=== PATIENT | female | born 2000 | race Asian ===

== ENCOUNTER 2023-01-18 15:26 | Inpatient (IN) ==
--- NOTE | 2023-01-18 16:04 | Emergency Department Note ---
Impression & Plan Suicide attempt ADMIT / 302 ED Provider Note HPI: The patient is a 22-year-old female who presents the emergency department after an intentional overdose on Strattera. Patient states that at approximately 3 PM she took 28 separate 40 mg Strattera tablets as a suicide attempt. Patient otherwise is a limited historian, she is alert on arrival, she responds to my questions appropriately, she is hemodynamically stable and saturating well on room air on arrival. Per police report, patient mentioned that she was feeling very anxious about recent exams as this is at the [facility] [employer]. ROS: - Per HPI *Outpatient medications and allergy history reviewed. *Pertinent external medical records reviewed. PE: General: Alert HEENT: Normocephalic, trachea midline Eyes: Extraocular eye movement is intact, no scleral erythema Pulmonary: Clear to auscultation bilaterally, no wheezing Cardio: Regular rate and rhythm GI: Abdomen is soft to palpation : No suprapubic tenderness MSK: No evidence of trauma or malformation of the extremities, no edema Skin: No evidence of rash Neuro: Alert, no focal deficits Psychiatric: Cooperative phototypesetting equipment monitor: (As interpreted by myself): - An order was placed for continuous cardiac monitoring - Patient was noted to be in sinus rhythm with a rate of 90 EKG: (As interpreted by myself): Rate: 73 Rhythm: Normal sinus rhythm Intervals: Within normal limits ST changes: No ST elevation Time: 1530 Medical Decision Making: Patient presented to the emergency department after intentional drug overdose as a suicide attempt. Patient states that she took 28 separate 40 mg tablets of Strattera. Patient states that she did this as a suicide attempt. She otherwise does not want to provide other details in regards to her presentation. Per police report patient did mention that she was feeling very stressed and anxious about her recent exam she took during . She is an international student and reportedly will be returning home to [place] in the coming weeks. IV was established and lab work obtained, patient was maintained on monitoring coordinator, EKG was obtained. EKG does not show any evidence of arrhythmia or interval prolongation, patient is alert and oriented on arrival. Patient's pr esentation was discussed with Poison Control Center, [place], I did discuss case with the poison corporate controller, at this time supportive care measures recommended, benzodiazepines as needed for any agitation or hypertension, otherwise avoidance of antipsychotics over concern for lowering seizure threshold. Patient will be able to be medically cleared after 8 hours of observation if she does well. Given the patient admitted to me that this was a suicide attempt, 302 was filed. Patient's lab work shows negative alcohol level, negative Tylenol and salicylate levels. Otherwise no critical findings noted. UDS is arellano negative. Patient was signed out to my colleague at change of shift, Dr. Dominguez, pending ongoing bed search under 302. Consultants: Case management, poison control Diagnosis: 1. Intentional drug overdose 2. Suicide attempt Disposition: Hand off, 302 Newton Kahn, DO Emergency Medicine Past Med/Surg History Social History Smoking Status: Never smoker Feels Safe at Home: Yes Results & Data (ED) Vital Signs Vital Signs - 24 hr 01/18/23 15:30 01/18/23 15:50 01/18/23 15:40 Temperature 34.7 C L Temperature Source Axillary Pulse Rate 70 74 Pulse Rate [Apical] 75 Pulse Rate from SpO2 Sensor 74 Pulse Rhythm [Apical] Regular Pulse Strength [Apical] Normal Respiratory Rate 16 14 22 Respiratory Effort / Characteristics Non-Labored Non-Labored Spontaneous Respiratory Depth Normal Normal Respiratory Pattern Regular Regular Blood Pressure 142/95 H 124/93 Blood Pressure [Right Arm] 122/87 Blood Pressure Mean 110 103 Blood Pressure Mean [Right Arm] 98 Blood Pressure Position [Right Arm] Lying Pulse Oximetry 100 100 100 Oxygen Delivery Method Room Air Room Air Sepsis Recent Fever Within 48 Hours No Sepsis New/Unexplained Change in Mental Status N/A Sepsis Action Taken by Nursing No Action Required 01/18/23 15:50 01/18/23 15:35 01/18/23 16:00 Temperature Temperature Source Pulse Rate 73 69 73 Pulse Rate [Apical] Pulse Rate from SpO2 Sensor 73 73 Pulse Rhythm [Apical] Pulse Strength [Apical] Respiratory Rate 21 22 Respiratory Effort / Characteristics Respiratory Depth Respiratory Pattern Blood Pressure 122/87 124/92 Blood Pressure [Right Arm] Blood Pressure Mean 98 102 Blood Pressure Mean [Right Arm] Blood Pressure Position [Right Arm] Pulse Oximetry 100 99 Oxygen Delivery Method Sepsis Recent Fever Within 48 Hours Sepsis New/Unexplained Change in Mental Status Sepsis Action Taken by Nursing 01/18/23 16:10 01/18/23 16:20 01/18/23 16:30 Temperature Temperature Source Pulse Rate 69 82 74 Pulse Rate [Apical] Pulse Rate from SpO2 Sensor 70 79 75 Pulse Rhythm [Apical] Pulse Strength [Apical] Respiratory Rate 23 21 26 H Respiratory Effort / Characteristics Respiratory Depth Respiratory Pattern Blood Pressure 126/89 126/88 126/92 Blood Pressure [Right Arm] Blood Pressure Mean 101 100 103 Blood Pressure Mean [Right Arm] Blood Pressure Position [Right Arm] Pulse Oximetry 99 99 99 Oxygen Delivery Method Sepsis Recent Fever Within 48 Hours Sepsis New/Unexplained Change in Mental Status Sepsis Action Taken by Nursing 01/18/23 16:40 01/18/23 16:50 01/18/23 17:00 Temperature Temperature Source Pulse Rate 72 73 74 Pulse Rate [Apical] Pulse Rate from SpO2 Sensor 72 72 72 Pulse Rhythm [Apical] Pulse Strength [Apical] Respiratory Rate 23 24 24 Respiratory Effort / Characteristics Respiratory Depth Respiratory Pattern Blood Pressure 126/90 124/90 123/88 Blood Pressure [Right Arm] Blood Pressure Mean 102 101 99 Blood Pressure Mean [Right Arm] Blood Pressure Position [Right Arm] Pulse Oximetry 99 100 99 Oxygen Delivery Method Sepsis Recent Fever Within 48 Hours Sepsis New/Unexplained Change in Mental Status Sepsis Action Taken by Nursing 01/18/23 17:10 01/18/23 17:20 01/18/23 17:30 Temperature Temperature Source Pulse Rate 73 75 84 Pulse Rate [Apical] Pulse Rate from SpO2 Sensor 73 74 80 Pulse Rhythm [Apical] Pulse Strength [Apical] Respiratory Rate 27 H 24 23 Respiratory Effort / Characteristics Respiratory Depth Respiratory Pattern Blood Pressure 123/87 122/83 124/87 Blood Pressure [Right Arm] Blood Pressure Mean 99 96 99 Blood Pressure Mean [Right Arm] Blood Pressure Position [Right Arm] Pulse Oximetry 99 99 99 Oxygen Delivery Method Sepsis Recent Fever Within 48 Hours Sepsis New/Unexplained Change in Mental Status Sepsis Action Taken by Nursing 01/18/23 17:40 01/18/23 17:50 01/18/23 18:00 Temperature Temperature Source Pulse Rate 74 79 83 Pulse Rate [Apical] Pulse Rate from SpO2 Sensor 77 79 82 Pulse Rhythm [Apical] Pulse Strength [Apical] Respiratory Rate 24 26 H 21 Respiratory Effort / Characteristics Respiratory Depth Respiratory Pattern Blood Pressure 130/92 126/87 125/86 Blood Pressure [Right Arm] Blood Pressure Mean 104 100 99 Blood Pressure Mean [Right Arm] Blood Pressure Position [Right Arm] Pulse Oximetry 98 98 98 Oxygen Delivery Method Sepsis Recent Fever Within 48 Hours Sepsis New/Unexplained Change in Mental Status Sepsis Action Taken by Nursing 01/18/23 18:10 01/18/23 18:20 01/18/23 18:30 Temperature Temperature Source Pulse Rate 82 81 80 Pulse Rate [Apical] Pulse Rate from SpO2 Sensor 84 81 80 Pulse Rhythm [Apical] Pulse Strength [Apical] Respiratory Rate 24 22 15 Respiratory Effort / Characteristics Respiratory Depth Respiratory Pattern Blood Pressure 124/84 125/83 126/84 Blood Pressure [Right Arm] Blood Pressure Mean 97 97 98 Blood Pressure Mean [Right Arm] Blood Pressure Position [Right Arm] Pulse Oximetry 97 97 97 Oxygen Delivery Method Sepsis Recent Fever Within 48 Hours Sepsis New/Unexplained Change in Mental Status Sepsis Action Taken by Nursing 01/18/23 18:40 01/18/23 18:50 01/18/23 19:00 Temperature Temperature Source Pulse Rate 86 85 83 Pulse Rate [Apical] Pulse Rate from SpO2 Sensor 89 85 84 Pulse Rhythm [Apical] Pulse Strength [Apical] Respiratory Rate 24 24 22 Respiratory Effort / Characteristics Respiratory Depth Respiratory Pattern Blood Pressure 129/80 129/79 125/77 Blood Pressure [Right Arm] Blood Pressure Mean 96 95 93 Blood Pressure Mean [Right Arm] Blood Pressure Position [Right Arm] Pulse Oximetry 97 97 96 Oxygen Delivery Method Sepsis Recent Fever Within 48 Hours Sepsis New/Unexplained Change in Mental Status Sepsis Action Taken by Nursing Laboratory Data 01/18/23 15:46 01/18/23 15:46 Lab Results 01/18/23 01/18/23 01/18/23 Range/Units 15:46 15:46 15:46 WBC 11.63 H (4.8-10.8) K/ul RBC 4.09 L (4.20-5.40) M/uL Hgb 12.2 (12.0-16.0) g/dl Hct 36.7 L (37.0-47.0) % MCV 89.7 (80.0-100.0) fL MCH 29.8 (25.0-34.0) pg MCHC 33.2 (32.0-36.0) g/dL RDW Std Deviation 39.0 (36.4-46.3) fL RDW Coeff of David 11.9 (11.5-14.5) % Plt Count 263 (130-400) K/uL MPV 10.2 (9.4-12.4) fL Immature Gran % (Auto) 0.4 % Neut % (Auto) 55.2 % Lymph % (Auto) 37.7 % Emmons % (Auto) 5.3 % Eos % (Auto) 0.7 % Baso % (Auto) 0.7 % Neut # (Auto) 6.42 (1.40-6.50) K/uL Lymph # (Auto) 4.38 H (1.2-3.4) K/uL Emmons # (Auto) 0.62 H (0.11-0.59) K/uL Eos # (Auto) 0.08 (0-0.50) K/uL Baso # (Auto) 0.08 (0-0.2) K/uL Immature Gran # (Auto) 0.05 (0.01-0.20) K/uL Sodium 137 (136-145) mmol/L Potassium 3.4 L (3.5-5.1) mmol/L Chloride 106 (98-107) mmol/L Carbon Dioxide 25 (21-32) mmol/L Anion Gap 6 (3-11) BUN 16 (6-23) mg/dl Creatinine 0.74 (0.6-1.2) mg/dl Est Cr Clr Drug Dosing Not Reportable Est GFR ( Amer) 133.3 ml/min Est GFR (Non-Af Amer) 115.0 ml/min BUN/Creatinine Ratio 21.6 H (10-20) Glucose 89 (70-99(Fasting)) mg/dl Calcium 8.5 L (8.6-10.3) mg/dl Magnesium 1.7 (1.7-2.4) mg/dl Total Bilirubin 0.4 (0.2-1.0) mg/dl AST 12 L (13-39) U/L ALT 8 (7-52) U/L Alkaline Phosphatase 66 (34-104) U/L Total Protein 6.8 (6.0-8.3) gm/dl Albumin 4.2 (3.4-5.0) gm/dl Globulin 2.6 (2.5-4.0) gm/dl Albumin/Globulin Ratio 1.6 (0.9-2) TSH 2.161 (0.300-4.500) uIu/ml Urine Color Urine Appearance (Clear) Urine pH (4.5-7.5) Ur Specific [place] (1.000-1.030) Urine Protein (Negative) Urine Glucose (UA) (Negative) Urine Ketones (Negative) Urine Blood (Negative) Urine Nitrite (Negative) Urine Bilirubin (Negative) Urine Urobilinogen (Negative) Ur Leukocyte Esterase (Negative) Urine WBC (Auto) (0-5) /hpf Urine RBC (Auto) (0-4) /hpf U Hyaline Cast (Auto) (0-5) /lpf U Epithel Cells (Auto) (0-5) /lpf Urine Bacteria (Auto) (Negative) POC Ur Test (NEG) Salicylates (3.0-30) mg/dl Urine Opiates Screen (Neg) Ur Methadone, Qual (Neg) Acetaminophen (10-30) ug/ml Urine Barbiturates (Neg) Ur Phencyclidine (PCP) (Neg) U Amphetamin/Meth Scrn (Neg) MDMA (Ecstasy) Screen (Neg) U Benzodiazepines Scrn (Neg) Ur Cocaine Metabolite (Neg) U Marijuana (THC) Screen (Neg) Ethyl Alcohol mg/dL (<10.0) mg/dl SARS-CoV-2, RNA, NAAT (NEGATIVE) 01/18/23 01/18/23 01/18/23 Range/Units 15:46 15:46 15:47 WBC (4.8-10.8) K/ul RBC (4.20-5.40) M/uL Hgb (12.0-16.0) g/dl Hct (37.0-47.0) % MCV (80.0-100.0) fL MCH (25.0-34.0) pg MCHC (32.0-36.0) g/dL RDW Std Deviation (36.4-46.3) fL RDW Coeff of David (11.5-14.5) % Plt Count (130-400) K/uL MPV (9.4-12.4) fL Immature Gran % (Auto) % Neut % (Auto) % Lymph % (Auto) % Emmons % (Auto) % Eos % (Auto) % Baso % (Auto) % Neut # (Auto) (1.40-6.50) K/uL Lymph # (Auto) (1.2-3.4) K/uL Emmons # (Auto) (0.11-0.59) K/uL Eos # (Auto) (0-0.50) K/uL Baso # (Auto) (0-0.2) K/uL Immature Gran # (Auto) (0.01-0.20) K/uL Sodium (136-145) mmol/L Potassium (3.5-5.1) mmol/L Chloride (98-107) mmol/L Carbon Dioxide (21-32) mmol/L Anion Gap (3-11) BUN (6-23) mg/dl Creatinine (0.6-1.2) mg/dl Est Cr Clr Drug Dosing Est GFR ( Amer) ml/min Est GFR (Non-Af Amer) ml/min BUN/Creatinine Ratio (10-20) Glucose (70-99(Fasting)) mg/dl Calcium (8.6-10.3) mg/dl Magnesium (1.7-2.4) mg/dl Total Bilirubin (0.2-1.0) mg/dl AST (13-39) U/L ALT (7-52) U/L Alkaline Phosphatase (34-104) U/L Total Protein (6.0-8.3) gm/dl Albumin (3.4-5.0) gm/dl Globulin (2.5-4.0) gm/dl Albumin/Globulin Ratio (0.9-2) TSH (0.300-4.500) uIu/ml Urine Color Urine Appearance (Clear) Urine pH (4.5-7.5) Ur Specific [place] (1.000-1.030) Urine Protein (Negative) Urine Glucose (UA) (Negative) Urine Ketones (Negative) Urine Blood (Negative) Urine Nitrite (Negative) Urine Bilirubin (Negative) Urine Urobilinogen (Negative) Ur Leukocyte Esterase (Negative) Urine WBC (Auto) (0-5) /hpf Urine RBC (Auto) (0-4) /hpf U Hyaline Cast (Auto) (0-5) /lpf U Epithel Cells (Auto) (0-5) /lpf Urine Bacteria (Auto) (Negative) POC Ur Test (NEG) Salicylates < 3.0 L (3.0-30) mg/dl Urine Opiates Screen (Neg) Ur Methadone, Qual (Neg) Acetaminophen < 3 L (10-30) ug/ml Urine Barbiturates (Neg) Ur Phencyclidine (PCP) (Neg) U Amphetamin/Meth Scrn (Neg) MDMA (Ecstasy) Screen (Neg) U Benzodiazepines Scrn (Neg) Ur Cocaine Metabolite (Neg) U Marijuana (THC) Screen (Neg) Ethyl Alcohol mg/dL < 10.0 (<10.0) mg/dl SARS-CoV-2, RNA, NAAT NEGATIVE (NEGATIVE) 01/18/23 01/18/23 01/18/23 Range/Units 16:23 17:38 17:38 WBC (4.8-10.8) K/ul RBC (4.20-5.40) M/uL Hgb (12.0-16.0) g/dl Hct (37.0-47.0) % MCV (80.0-100.0) fL MCH (25.0-34.0) pg MCHC (32.0-36.0) g/dL RDW Std Deviation (36.4-46.3) fL RDW Coeff of David (11.5-14.5) % Plt Count (130-400) K/uL MPV (9.4-12.4) fL Immature Gran % (Auto) % Neut % (Auto) % Lymph % (Auto) % Emmons % (Auto) % Eos % (Auto) % Baso % (Auto) % Neut # (Auto) (1.40-6.50) K/uL Lymph # (Auto) (1.2-3.4) K/uL Emmons # (Auto) (0.11-0.59) K/uL Eos # (Auto) (0-0.50) K/uL Baso # (Auto) (0-0.2) K/uL Immature Gran # (Auto) (0.01-0.20) K/uL Sodium (136-145) mmol/L Potassium (3.5-5.1) mmol/L Chloride (98-107) mmol/L Carbon Dioxide (21-32) mmol/L Anion Gap (3-11) BUN (6-23) mg/dl Creatinine (0.6-1.2) mg/dl Est Cr Clr Drug Dosing Est GFR ( Amer) ml/min Est GFR (Non-Af Amer) ml/min BUN/Creatinine Ratio (10-20) Glucose (70-99(Fasting)) mg/dl Calcium (8.6-10.3) mg/dl Magnesium Cancelled (1.7-2.4) mg/dl Total Bilirubin (0.2-1.0) mg/dl AST (13-39) U/L ALT (7-52) U/L Alkaline Phosphatase (34-104) U/L Total Protein (6.0-8.3) gm/dl Albumin (3.4-5.0) gm/dl Globulin (2.5-4.0) gm/dl Albumin/Globulin Ratio (0.9-2) TSH (0.300-4.500) uIu/ml Urine Color Yellow Urine Appearance Clear (Clear) Urine pH 7.5 (4.5-7.5) Ur Specific [place] 1.012 (1.000-1.030) Urine Protein Negative (Negative) Urine Glucose (UA) Negative (Negative) Urine Ketones Negative (Negative) Urine Blood Negative (Negative) Urine Nitrite Negative (Negative) Urine Bilirubin Negative (Negative) Urine Urobilinogen Negative (Negative) Ur Leukocyte Esterase 3+ H (Negative) Urine WBC (Auto) >30 H (0-5) /hpf Urine RBC (Auto) 0-4 (0-4) /hpf U Hyaline Cast (Auto) 1-5 (0-5) /lpf U Epithel Cells (Auto) 5-10 H (0-5) /lpf Urine Bacteria (Auto) Negative (Negative) POC Ur Test NEG (NEG) Salicylates (3.0-30) mg/dl Urine Opiates Screen (Neg) Ur Methadone, Qual (Neg) Acetaminophen (10-30) ug/ml Urine Barbiturates (Neg) Ur Phencyclidine (PCP) (Neg) U Amphetamin/Meth Scrn (Neg) MDMA (Ecstasy) Screen (Neg) U Benzodiazepines Scrn (Neg) Ur Cocaine Metabolite (Neg) U Marijuana (THC) Screen (Neg) Ethyl Alcohol mg/dL (<10.0) mg/dl SARS-CoV-2, RNA, NAAT (NEGATIVE) 01/18/23 Range/Units 17:38 WBC (4.8-10.8) K/ul RBC (4.20-5.40) M/uL Hgb (12.0-16.0) g/dl Hct (37.0-47.0) % MCV (80.0-100.0) fL MCH (25.0-34.0) pg MCHC (32.0-36.0) g/dL RDW Std Deviation (36.4-46.3) fL RDW Coeff of David (11.5-14.5) % Plt Count (130-400) K/uL MPV (9.4-12.4) fL Immature Gran % (Auto) % Neut % (Auto) % Lymph % (Auto) % Emmons % (Auto) % Eos % (Auto) % Baso % (Auto) % Neut # (Auto) (1.40-6.50) K/uL Lymph # (Auto) (1.2-3.4) K/uL Emmons # (Auto) (0.11-0.59) K/uL Eos # (Auto) (0-0.50) K/uL Baso # (Auto) (0-0.2) K/uL Immature Gran # (Auto) (0.01-0.20) K/uL Sodium (136-145) mmol/L Potassium (3.5-5.1) mmol/L Chloride (98-107) mmol/L Carbon Dioxide (21-32) mmol/L Anion Gap (3-11) BUN (6-23) mg/dl Creatinine (0.6-1.2) mg/dl Est Cr Clr Drug Dosing Est GFR ( Amer) ml/min Est GFR (Non-Af Amer) ml/min BUN/Creatinine Ratio (10-20) Glucose (70-99(Fasting)) mg/dl Calcium (8.6-10.3) mg/dl Magnesium (1.7-2.4) mg/dl Total Bilirubin (0.2-1.0) mg/dl AST (13-39) U/L ALT (7-52) U/L Alkaline Phosphatase (34-104) U/L Total Protein (6.0-8.3) gm/dl Albumin (3.4-5.0) gm/dl Globulin (2.5-4.0) gm/dl Albumin/Globulin Ratio (0.9-2) TSH (0.300-4.500) uIu/ml Urine Color Urine Appearance (Clear) Urine pH (4.5-7.5) Ur Specific [place] (1.000-1.030) Urine Protein (Negative) Urine Glucose (UA) (Negative) Urine Ketones (Negative) Urine Blood (Negative) Urine Nitrite (Negative) Urine Bilirubin (Negative) Urine Urobilinogen (Negative) Ur Leukocyte Esterase (Negative) Urine WBC (Auto) (0-5) /hpf Urine RBC (Auto) (0-4) /hpf U Hyaline Cast (Auto) (0-5) /lpf U Epithel Cells (Auto) (0-5) /lpf Urine Bacteria (Auto) (Negative) POC Ur Test (NEG) Salicylates (3.0-30) mg/dl Urine Opiates Screen Neg (Neg) Ur Methadone, Qual Neg (Neg) Acetaminophen (10-30) ug/ml Urine Barbiturates Neg (Neg) Ur Phencyclidine (PCP) Neg (Neg) U Amphetamin/Meth Scrn Neg (Neg) MDMA (Ecstasy) Screen Neg (Neg) U Benzodiazepines Scrn Neg (Neg) Ur Cocaine Metabolite Neg (Neg) U Marijuana (THC) Screen Neg (Neg) Ethyl Alcohol mg/dL (<10.0) mg/dl SARS-CoV-2, RNA, NAAT (NEGATIVE) Administered Medications Discontinued Medications Potassium Chloride (Potassium Chloride Pwd 20 Meq Pack) 20 meq PO NOW STA Stop: 01/18/23 16:28 Last Admin: 01/18/23 17:29 Dose: 20 meq Documented By: YESY Discharge Plan Visit Data Chief Complaint: Overdose (Intentional) Stated Complaint: OVERDOSE ED Provider: Newton Kahn Discharge Problem: Suicide attempt Forms Stand Alone Forms: My [facility], Suicide Prevention Resources Referrals Referrals: PCP,NO [Physician] -
[2023-01-18 16:15] LABS: Basophils # (auto) 0.08 K/uL (0-0.2); Basophils % (auto) 0.7 %; Eosinophils # (auto) 0.08 K/uL (0-0.50); Eosinophils % (auto) 0.7 %; Hematocrit (blood only) 36.7 % (37.0-47.0); Hemoglobin 12.2 g/dl (12.0-16.0); Immature Granulocytes # (auto) 0.05 K/uL (0.01-0.20); Immature Granulocytes % (auto) 0.4 %; Lymphocytes # (auto) 4.38 K/uL (1.2-3.4); Lymphocytes % (auto) 37.7 %; Mean Corpuscular Hemoglobin 29.8 pg (25.0-34.0); Mean Corpuscular Hgb Conc 33.2 g/dL (32.0-36.0); Mean Corpuscular Volume 89.7 fL (80.0-100.0); Mean Platelet Volume 10.2 fL (9.4-12.4); Monocytes # (auto) 0.62 K/uL (0.11-0.59); Monocytes % (auto) 5.3 %; Neutrophils # (auto) 6.42 K/uL (1.40-6.50); Neutrophils % (auto) 55.2 %; Platelet Count 263 K/uL (130-400); RDW Coefficient of Variation 11.9 % (11.5-14.5); Red Blood Count 4.09 M/uL (4.20-5.40); White Blood Count 11.63 K/ul (4.8-10.8)
[2023-01-18 16:18] LABS: Acetaminophen < 3 ug/ml (10-30); Salicylate < 3.0 mg/dl (3.0-30)
[2023-01-18 16:21] LABS: Alanine Aminotransferase 8 U/L (7-52); Albumin Globulin Ratio 1.6 (0.9-2); Albumin Level 4.2 gm/dl (3.4-5.0); Alkaline Phosphatase 66 U/L (34-104); Anion Gap 6 (3-11); Aspartate Aminotransferase 12 U/L (13-39); BUN Creatinine Ratio 21.6 (10-20); Bilirubin,Total 0.4 mg/dl (0.2-1.0); Blood Urea Nitrogen 16 mg/dl (6-23); Calcium 8.5 mg/dl (8.6-10.3); Carbon Dioxide 25 mmol/L (21-32); Chloride 106 mmol/L (98-107); Est GFR (African American) 133.3 ml/min; Globulin 2.6 gm/dl (2.5-4.0); Glucose 89 mg/dl (70-99(Fasting)); Potassium 3.4 mmol/L (3.5-5.1); Sodium 137 mmol/L (136-145); Total Protein 6.8 gm/dl (6.0-8.3)
[2023-01-18] MEDS ORDERED: POTASSIUM CHLORIDE PWD 20 MEQ PACK PO STA (16:27)
[2023-01-18 16:42] LABS: Magnesium 1.7 mg/dl (1.7-2.4)
[2023-01-18 18:06] LABS: Appearance Urine Clear (Clear); Bacteria Urine Automated Negative (Negative); Bilirubin Urine Negative (Negative); Blood Urine Negative (Negative); Color Urine Yellow; Glucose Urine UA Negative (Negative); Ketones Urine Negative (Negative); Leukocyte Esterase Urine 3+ (Negative); Nitrite Urine Negative (Negative); Protein Urine Negative (Negative); RBC Urine Automated 0-4 /hpf (0-4); Specific Gravity Urine 1.012 (1.000-1.030); Urobilinogen Urine Negative (Negative); WBC Urine Automated >30 /hpf (0-5); pH Urine 7.5 (4.5-7.5)
[2023-01-18 18:36] LABS: Amphetamines+Metham, Urine Neg (Neg); Barbiturates, Urine Neg (Neg); Benzodiazepine, Urine Neg (Neg); Cocaine, Urine Neg (Neg); MDMA (Ecstacy), Urine Neg (Neg); Methadone, Urine Neg (Neg); Opiate, Urine Neg (Neg); Phencyclidine, Urine Neg (Neg)
--- NOTE | 2023-01-18 19:25 | Emergency Department Note ---
ED Visit Note I received signout from prior physician Dr. Sommer. Patient reportedly took 1100 mg milligrams of Strattera at 3 PM. Patient reportedly had taken this and it was a suicide attempt reported to police and this was secondary to the rigors of [facility]. Prior physician had spoken with poison control who stated the patient would be clear at 11 PM. A repeat EKG was ordered at 10 PM. She was already been signed. Pending medical clearance around 11 PM. Patient's blood work with white count of 11 normal hemoglobin and platelet count. Kidney function is unremarkable with mild hypokalemia 3.4. Patient's repeat EKG shows normal sinus rhythm. QT is somewhat prolonged at 480 but is unchanged from prior. Poison control wanted to ensure that her QT was under 500. Patient was deemed medically cleared. I did asked nursing to recheck a temperature as her initial presenting temperature was 34.7. Repeat temperature was normal. The patient did develop some nausea. Poison control is stated that the patient might benefit from some magnesium even though her QTc is not greater than 500. This was ordered. Given the patient's nausea and prolonged QT the patient was ordered some Reglan. [facility] was reviewing but not currently excepted. Patient was signed out to Dr. Ashraf pending an inpatient bed for treatment. .
[2023-01-19] MEDS ORDERED: METOCLOPRAMIDE HCL INJ 5 MG/ML 2 ML VIAL IV STA (00:48)
[2023-01-19] MEDS ORDERED: MAGNESIUM SULFATE / D5W 1 GM/100 ML BAG IV STA (00:49)
--- NOTE | 2023-01-19 01:47 | Emergency Department Note ---
ED Visit Note Date and Time: 01/19/2023 0140 Interval History: Sign out received from Dr. Dominguez who reviewed details of the encounter. Patient was pending 302 admission. Summary: Patient was receiving IV magnesium. Nursing staff noted that she became somewhat unsteady on her feet with ambulation to the bathroom. They did orthostatic vital signs which were negative. Her vital signs were completely normal. I evaluated patient at this time and she described feeling tired. She did describe feeling somewhat shaky. I discussed the case with the [facility] liaison and suggested that they have someone accompany her when she stands up to go to the bathroom if she is still feeling shaky. The patient has been accepted on [facility] and will be transferred there. .
[2023-01-19] MEDS ORDERED: SODIUM CHLORIDE 0.65% NA SOLN 45 ML (OCEAN) PRN (03:09)
[2023-01-19] MEDS ORDERED: ACETAMINOPHEN 325 MG TAB PO PRN (03:09)
[2023-01-19] MEDS ORDERED: MAGNESIUM HYDROXIDE SUSP 30 ML UDC PO PRN (03:09)
[2023-01-19] MEDS ORDERED: ALUMINUM/MAGNESIUM SUSP 30 ML UDC PO PRN (03:09)
[2023-01-19] MEDS ORDERED: BISMUTH SUBSALICYLATE LIQD 236 ML PO PRN (03:09)
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
--- NOTE | 2023-01-19 21:23 | Electrocardiogram Report ---
Test Reason : Blood Pressure : / mmHG Vent. Rate : 073 BPM Atrial Rate : 073 BPM P-R Int : 126 ms QRS Dur : 096 ms QT Int : 418 ms P-R-T Axes : 075 067 053 degrees QTc Int : 460 ms Normal sinus rhythm RSR' or QR pattern in V1 suggests right ventricular conduction delay Borderline ECG No previous ECGs available Confirmed by Vito Dumont ([id number]) on 01/19/2023 9:23:28 PM Referred By: Confirmed By:Vito Dumont
--- NOTE | 2023-01-19 21:39 | Electrocardiogram Report ---
Test Reason : Blood Pressure : / mmHG Vent. Rate : 090 BPM Atrial Rate : 090 BPM P-R Int : 124 ms QRS Dur : 092 ms QT Int : 360 ms P-R-T Axes : 080 068 034 degrees QTc Int : 441 ms Normal sinus rhythm Normal ECG When compared with ECG of 18-JAN-2023 15:30, (unconfirmed) No significant change was found Confirmed by Vito Dumont ([id number]) on 01/19/2023 9:38:58 PM Referred By: REFERRED SELF Confirmed By:Vito Dumont
--- NOTE | 2023-01-19 21:49 | Electrocardiogram Report ---
Test Reason : Blood Pressure : / mmHG Vent. Rate : 085 BPM Atrial Rate : 085 BPM P-R Int : 128 ms QRS Dur : 090 ms QT Int : 404 ms P-R-T Axes : 082 070 039 degrees QTc Int : 480 ms Normal sinus rhythm Normal ECG When compared with ECG of 18-JAN-2023 19:36, (unconfirmed) No significant change was found Confirmed by Vito Dumont ([id number]) on 01/19/2023 9:49:28 PM Referred By: REFERRED SELF Confirmed By:Vito Dumont
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
--- NOTE | 2023-01-21 10:24 | Electrocardiogram Report ---
Test Reason : Blood Pressure : / mmHG Vent. Rate : 083 BPM Atrial Rate : 083 BPM P-R Int : 118 ms QRS Dur : 084 ms QT Int : 378 ms P-R-T Axes : 083 072 044 degrees QTc Int : 444 ms Normal sinus rhythm Normal ECG When compared with ECG of 18-JAN-2023 22:03, No significant change was found Confirmed by Carlos Nash ([id number]) on 01/21/2023 10:24:07 AM Referred By: REFERRED SELF Confirmed By:Carlos Nash
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
[2023-01-21] MEDS: buPROPion XL 150 MG TABCR PO SCH (14:52)
[2023-01-22] MEDS: buPROPion XL 150 MG TABCR PO SCH (08:34)
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
[2023-01-23] MEDS: buPROPion XL 150 MG TABCR PO SCH (08:58)
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
[2023-01-24] MEDS: buPROPion XL 150 MG TABCR PO SCH (08:39)
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
== END 2023-01-24 11:05 | disposition home or self-care (01) | DRG 885 ==
LOC: ED 15:26 → 3S 01-19 03:09